=== PATIENT | female | born 1995 | race Caucasian/White ===

== ENCOUNTER 2017-07-29 21:20 | Outpatient (CLI) | payer OTHER ==
[2017-07-29 22:17] LABS: ADD MAN DIFF? NO
[2017-07-29 22:21] LABS: WHITE BLOOD COUNT 10.4 10^3/ul (4.8-10.8)
[2017-07-29 22:21] LABS: BASOPHILS % 0.3 % (0.0-2.0); EOSINOPHILS # 0.2 10^3/ul (0.0-0.5); HEMOGLOBIN 11.7 g/dl (12.0-16.0); LYMPHOCYTES # 1.7 10^3/ul (0.8-2.9); LYMPHOCYTES % 16.4 % (15.0-51.0); MEAN CORPUSCULAR HEMOGLOBIN 32.3 pg (29.0-33.0); MEAN CORPUSCULAR HGB CONC 35.5 g/dl (32.0-37.0); MEAN CORPUSCULAR VOLUME 91.2 fl (82.0-101.0); MEAN PLATELET VOLUME 10.8 fl (7.4-10.4); MONOCYTE # 0.8 10^3/ul (0.3-0.9); MONOCYTES % 7.8 % (0.0-11.0); NEUTROPHIL # 7.4 10^3/ul (1.6-7.5); NEUTROPHILS % 71.3 % (39.0-77.0); PLATELET COUNT 181 10^3/UL (140-415); RED BLOOD COUNT 3.62 10^6/ul (4.20-5.40); RED CELL DISTRIBUTION WIDTH 13.5 % (11.5-14.5)
[2017-07-29 22:24] LABS: ADD UMIC NO; UR ASCORBIC ACID NEGATIVE (NEGATIVE); UR BILIRUBIN (Dip) NEGATIVE (NEGATIVE); UR BLOOD (Dip) NEGATIVE (NEGATIVE); UR CLARITY CLEAR (CLEAR); UR COLOR YELLOW (YELLOW); UR GLUCOSE (Dip) NEGATIVE (NEGATIVE); UR KETONES (Dip) NEGATIVE (NEGATIVE); UR LEUKOCYTE ESTERASE (Dip) NEGATIVE Leu/ul (NEGATIVE); UR NITRITE (Dip) NEGATIVE (NEGATIVE); UR SPECIFIC GRAVITY (Dip) 1.014 (1.003-1.030); UR TOTAL PROTEIN (Dip) NEGATIVE (NEGATIVE); UR UROBILINOGEN (Dip) NEGATIVE (NEGATIVE)
== END 2017-07-29 23:10 | disposition home or self-care (01) ==
LOC: OBT 21:20 → L-D 21:20 → OBT 23:10
DX: O26.892 Other specified pregnancy related conditions, second trimester (principal); R14.0 Abdominal distension (gaseous); Z3A.27 27 weeks gestation of pregnancy
CPT/HCPCS: 81003; 85025

== ENCOUNTER 2017-09-13 20:29 | Outpatient (CLI) | payer OTHER ==
[2017-09-13 21:52] LABS: ADD UMIC NO; UR ASCORBIC ACID 20 mg/dL (NEGATIVE); UR BACTERIA FEW /HPF (NONE SEEN); UR BILIRUBIN (Dip) NEGATIVE (NEGATIVE); UR BLOOD (Dip) NEGATIVE (NEGATIVE); UR CLARITY SLIGHTLY CLOUDY (CLEAR); UR COLOR YELLOW (YELLOW); UR GLUCOSE (Dip) NEGATIVE (NEGATIVE); UR KETONES (Dip) NEGATIVE (NEGATIVE); UR LEUKOCYTE ESTERASE (Dip) NEGATIVE Leu/ul (NEGATIVE); UR MUCUS MODERATE /HPF (NONE SEEN); UR NITRITE (Dip) NEGATIVE (NEGATIVE); UR RBC 0 /HPF (0-5); UR SPECIFIC GRAVITY (Dip) 1.019 (1.003-1.030); UR SQUAMOUS EPITHELIAL CELL FEW /HPF (FEW); UR TOTAL PROTEIN (Dip) NEGATIVE (NEGATIVE); UR UROBILINOGEN (Dip) NEGATIVE (NEGATIVE); UR WBC 2 /HPF (0-5)
[2017-09-13 22:19] LABS: RUPTURE FETAL MEMBRANES NEGATIVE (NEGATIVE)
[2017-09-13] MEDS: LACTATED RINGER'S 1,000 ML IV (22:48)
== END 2017-09-13 23:59 | disposition home or self-care (01) ==
LOC: OBT 20:29 → L-D 20:30 → OBT 23:59
DX: O42.913 Preterm premature rupture of membranes, unspecified as to length of time between rupture and onset of labor, third trimester (principal); Z3A.34 34 weeks gestation of pregnancy
CPT/HCPCS: 76818; 81001; 81003; 84112; 87086

== ENCOUNTER 2017-09-17 23:30 | Emergency (ER) | payer OTHER | END 2017-09-18 01:55 | disposition home or self-care (01) | LOC: FTE 23:30 | DX: O98.813 Other maternal infectious and parasitic diseases complicating pregnancy, third trimester (principal); B37.0 Candidal stomatitis; K14.9 Disease of tongue, unspecified; Z3A.34 34 weeks gestation of pregnancy | CPT/HCPCS: 99283 ==

== ENCOUNTER 2017-10-04 18:52 | Outpatient (CLI) | payer OTHER | END 2017-10-04 20:58 | disposition home or self-care (01) | LOC: OBT 18:52 → L-D 18:53 → OBT 20:58 | DX: O36.8330 Maternal care for abnormalities of the fetal heart rate or rhythm, third trimester, not applicable or unspecified (principal); Z3A.37 37 weeks gestation of pregnancy | CPT/HCPCS: 76818 ==

== ENCOUNTER 2017-10-16 01:07 | Outpatient (CLI) | payer OTHER | END 2017-10-16 03:00 | disposition home or self-care (01) | LOC: OBT 01:07 → L-D 01:08 → OBT 03:00 | DX: O26.893 Other specified pregnancy related conditions, third trimester (principal); M79.89 Other specified soft tissue disorders; Z3A.38 38 weeks gestation of pregnancy | CPT/HCPCS: Z7500 ==

== ENCOUNTER 2017-10-18 01:36 | Inpatient (IN) | payer OTHER ==
[2017-10-18] MEDS ORDERED: LACTATED RINGER'S 1,000 ML IV (02:18)
[2017-10-18] MEDS ORDERED: LIDOCAINE 1% (MPF) 30 ML INJ INJ (02:30)
[2017-10-18] MEDS ORDERED: CARBOPROST 250 MCG INJ IM (02:30)
[2017-10-18] MEDS ORDERED: IBUPROFEN 600 MG TAB PO (02:30)
[2017-10-18] MEDS ORDERED: OXYTOCIN 30 UNITS/LR 500 ML IV ×2 (02:30)
[2017-10-18] MEDS ORDERED: MISOPROSTOL 200 MCG TAB PR (02:30)
[2017-10-18] MEDS ORDERED: BUTORPHANOL 2 MG INJ IV (02:30)
[2017-10-18] MEDS ORDERED: METHYLERGONOVINE 0.2 MG INJ IM (02:30)
[2017-10-18] MEDS: LACTATED RINGER'S 1,000 ML IV* ×5 (02:53→22:17)
[2017-10-18 03:09] LABS: ADD MAN DIFF? NO
[2017-10-18 03:13] LABS: BASOPHILS % 0.3 % (0.0-2.0); EOSINOPHILS # 0.1 10^3/ul (0.0-0.5); EOSINOPHILS % 1.1 % (0.0-7.0); HEMATOCRIT 36.9 % (37.0-47.0); HEMOGLOBIN 12.5 g/dl (12.0-16.0); LYMPHOCYTES # 1.6 10^3/ul (0.8-2.9); LYMPHOCYTES % 15.2 % (15.0-51.0); MEAN CORPUSCULAR HEMOGLOBIN 30.6 pg (29.0-33.0); MEAN CORPUSCULAR HGB CONC 33.9 g/dl (32.0-37.0); MEAN CORPUSCULAR VOLUME 90.2 fl (82.0-101.0); MEAN PLATELET VOLUME 11.8 fl (7.4-10.4); MONOCYTE # 0.6 10^3/ul (0.3-0.9); NEUTROPHILS % 75.9 % (39.0-77.0); PLATELET COUNT 180 10^3/UL (140-415); RED BLOOD COUNT 4.09 10^6/ul (4.20-5.40); RED CELL DISTRIBUTION WIDTH 13.6 % (11.5-14.5)
[2017-10-18 03:13] LABS: WHITE BLOOD COUNT 10.5 10^3/ul (4.8-10.8)
[2017-10-18 03:32] LABS: INR 0.87; PROTIME 11.9 Sec (11.9-14.9); PT RATIO 0.9
[2017-10-18 03:33] LABS: PARTIAL THROMBOPLASTIN TIME 26.6 Sec (25.0-35.0)
[2017-10-18 04:02] LABS: HEPATITIS B SURFACE ANTIGEN NEGATIVE (NEGATIVE)
[2017-10-18] MEDS: OXYTOCIN 30 UNITS/LR 500 ML IV (04:38)
[2017-10-18] MEDS ORDERED: AMPICILLIN 2 GM/NS (PMX) 100 ML (13:09)
[2017-10-18] MEDS: AMPICILLIN 2 GM/NS (PMX) 100 ML IVPB (13:15)
[2017-10-18] MEDS ORDERED: FENTAnyl 2MCG/ML-ROPIV 0.2% 100 ML (15:36)
[2017-10-18] MEDS ORDERED: NALOXONE (0.4 MG/ML) INJ IV (17:00)
[2017-10-18 17:07] LABS: RAPID PLASMA REAGIN NONREACTIVE (NR)
[2017-10-18] MEDS: AMPICILLIN 1 GM/NS (PMX) 50 ML IVPB ×2 (17:23→21:00)
[2017-10-19] MEDS: AMPICILLIN 1 GM/NS (PMX) 50 ML IVPB (01:01)
[2017-10-19] MEDS: FENTAnyl 2MCG/ML-ROPIV 0.2% 100 ML BAG EPI (01:46)
[2017-10-19] MEDS: OXYTOCIN 30 UNITS/LR 500 ML IV ×2 (04:59→09:12)
[2017-10-19] MEDS ORDERED: ACETAMINOPHEN 325 MG TAB PO (07:00)
[2017-10-19] MEDS ORDERED: DIBUCAINE 1% 30 GM OINT PR (07:00)
[2017-10-19] MEDS ORDERED: ONDANSETRON 4 MG INJ IV (07:00)
[2017-10-19] MEDS ORDERED: OXYCODONE/ASPIRIN (4.88/325) TAB PO ×2 (07:00)
[2017-10-19] MEDS ORDERED: HYDROCODONE/APAP (5/325) TAB PO ×2 (07:00)
[2017-10-19] MEDS: SENNA/DOCUSATE NA (8.6MG/50MG) TAB PO ×2 (09:13→21:22)
[2017-10-19] MEDS: IBUPROFEN 600 MG TAB PO ×3 (12:00→23:40)
[2017-10-19] MEDS: WITCH HAZEL/GLYCERIN PAD PR (12:52)
[2017-10-19] MEDS: LANOLIN 7 GM TUBE TOP (12:52)
[2017-10-19] MEDS: BENZOCAINE 20% 56 ML SPRAY TOP (12:52)
[2017-10-20] MEDS: IBUPROFEN 600 MG TAB PO ×5 (05:41→23:44)
[2017-10-20 09:11] LABS: ADD MAN DIFF? NO
[2017-10-20 09:19] LABS: WHITE BLOOD COUNT 12.3 10^3/ul (4.8-10.8)
[2017-10-20 09:19] LABS: BASOPHIL # 0.1 10^3/ul (0.0-0.1); BASOPHILS % 0.5 % (0.0-2.0); EOSINOPHILS # 0.3 10^3/ul (0.0-0.5); HEMATOCRIT 34.3 % (37.0-47.0); HEMOGLOBIN 11.5 g/dl (12.0-16.0); LYMPHOCYTES # 1.8 10^3/ul (0.8-2.9); LYMPHOCYTES % 14.7 % (15.0-51.0); MEAN CORPUSCULAR HEMOGLOBIN 31.4 pg (29.0-33.0); MEAN CORPUSCULAR HGB CONC 33.5 g/dl (32.0-37.0); MEAN CORPUSCULAR VOLUME 93.7 fl (82.0-101.0); MEAN PLATELET VOLUME 11.8 fl (7.4-10.4); MONOCYTE # 0.8 10^3/ul (0.3-0.9); MONOCYTES % 6.3 % (0.0-11.0); NEUTROPHIL # 9.2 10^3/ul (1.6-7.5); NEUTROPHILS % 74.6 % (39.0-77.0); PLATELET COUNT 179 10^3/UL (140-415); RED BLOOD COUNT 3.66 10^6/ul (4.20-5.40)
[2017-10-20] MEDS: SENNA/DOCUSATE NA (8.6MG/50MG) TAB PO ×2 (09:30→20:35)
[2017-10-21] MEDS: IBUPROFEN 600 MG TAB PO (05:34)
[2017-10-21] MEDS: MEASLES,MUMPS,RUBELLA VACCINE INJ SC* (09:00)
[2017-10-21] MEDS: SENNA/DOCUSATE NA (8.6MG/50MG) TAB PO (09:24)
== END 2017-10-21 12:05 | disposition home or self-care (01) | DRG 775 ==
LOC: OBT 01:36 → PP1 10-19 06:23 → L-D 01:38 → OBT 02:20 → L-D 02:15
PROVIDERS: Obstetrics & Gynecology
PROC: 10E0XZZ Delivery of Products of Conception, External Approach (ICD-10-PCS; principal; 2017-10-19)
PROC: 0HQ9XZZ Repair Perineum Skin, External Approach (ICD-10-PCS; 2017-10-19)
DX: O69.81X0 Labor and delivery complicated by cord around neck, without compression, not applicable or unspecified (principal); O70.0 First degree perineal laceration during delivery; Z3A.39 39 weeks gestation of pregnancy; Z37.0 Single live birth
CPT/HCPCS: 62319; 85025; 85610; 85730; 86592; 86850; 86900; 86901; 87340